=== PATIENT | female | born 1980 | race Caucasian/White ===

== ENCOUNTER 2021-06-28 17:00 | Emergency (ER) | payer MEDICARE, OTHER ==
[~2021-06-28] VITALS: Ht 165.1 cm; Wt 68.0 kg
[2021-06-28 17:02] VITALS: BP 124/81
[2021-06-28] MEDS ORDERED: AMOX-430 PO (17:48)
--- NOTE | 2021-06-28 17:58 | NUR ---
Patient discharged to home in stable condition. Written and verbal after care instructions given. Patient verbalizes understanding of instruction.
== END 2021-06-28 17:58 | disposition home or self-care (01) ==
LOC: ER 17:03
DX: T17.1XXA Foreign body in nostril, initial encounter (principal); Z79.899 Other long term (current) drug therapy; X58.XXXA Exposure to other specified factors, initial encounter; Y93.89 Activity, other specified; Y92.89 Other specified places as the place of occurrence of the external cause; Y99.8 Other external cause status